=== PATIENT | male | born 1960 | race American Indian/Alaskan Native ===

== ENCOUNTER 2016-09-23 19:30 | Emergency (ER) | payer SELFPAY ==
[2016-09-23] MEDS ORDERED: LASIX PO ONE (20:21)
[2016-09-23] MEDS ORDERED: MORPHINE IM ONE (20:47)
[2016-09-23] MEDS ORDERED: ZOFRAN ODT PO ONE (20:47)
--- NOTE | 2016-09-23 21:05 | Emergency Department Report ---
HPI - General Chief Complaint: Extremity Injury, Lower Time Seen by Provider: 09/23/16 20:13 - HPI HPI: The patient is a 55 yo male with a history of chronic bilateral lower leg pain and swelling, presents for recurrence of his pain. The patient states that one week ago he expressed recurrence of bilateral lower leg swelling, and constant pain since, 02/10 in severity, pressure-like and tight in quality, exacerbated with weight bearing and ambulation. The patient denies new trauma to the lower extremities, fever, chills, night sweats, shortness of breath, chest pain, color change in the legs or feet, paresthesias, or motor deficit. ED Past Medical Hx - Past Medical History Previous Medical History?: Yes Hx Hypertension: Yes Hx CVA: No Hx Heart Attack/AMI: No Hx Congestive Heart Failure: No Hx Diabetes: No Hx Deep Vein Thrombosis: No Hx GERD: No Hx Liver Disease: No Hx Renal Disease: No Hx of Cancer: No Hx Sickle Cell Disease: No Hx Arthritis: No Hx Headaches / Migraines: No Hx Seizures: No Hx Kidney Stones: No Hx Psychiatric Treatment: No Hx Asthma: No Hx COPD: No Hx Tuberculosis: No Hx Dementia: No Hx HIV: No Additional medical history: gout - Surgical History Past Surgical History?: Yes Hx Coronary Stent: No Hx Open Heart Surgery: No Hx Pacemaker: No Hx Internal Defibrillator: No Hx Cholecystectomy: No Hx Appendectomy: No Hx Breast Surgery: No Additional Surgical History: sinuses, rotator cuff, right knee, right foot three times. - Social History Smoking Status: Never Smoker Substance Use Type: None - Medications Home Medications: Home Medications Medication Instructions Recorded Confirmed Last Taken Type HYDROcodone/APAP 7.5-325 [[place] 1 each PO Q8HR PRN #10 tablet 09/23/16 Unknown Rx 7.5-325 mg TAB] Prednisone [predniSONE 10 mg 10 mg PO .TAPER #1 tab.ds.pk 09/23/16 Unknown Rx (6-Day Pack, 21 Tabs)] ED Review of Systems ROS: Stated complaint: LEG PAIN Other details as noted in HPI Constitutional: denies: fever ENT: denies: throat or neck pain Respiratory: denies: cough, shortness of breath Cardiovascular: denies: chest pain Endocrine: denies unexplained weight loss or gain Gastrointestinal: denies: abdominal pain, nausea Genitourinary: denies: dysuria Musculoskeletal: reports leg pain and leg swelling Skin: denies: rash Neurological: denies: headache Hematological/Lymphatic: denies: easy bleeding or easy bruising Psych: denies sadness or hopelessness Physical Exam - Physical Exam Vital Signs: Vital Signs 09/23/16 19:58 Temperature 99.8 F H Pulse Rate 98 H Respiratory 18 Rate Blood Pressure 135/92 Blood Pressure 145/92 [Right] O2 Sat by Pulse 98 Oximetry Physical Exam: General: well-nourished, well-developed, no acute distress Head: Normocephalic, atraumatic Eyes: normal sclera ENT: Mucous membranes are pink and moist Neck: trachea midline, neck supple, No neck stiffness, no cervical adenopathy Respiratory: Breath sounds equal bilaterally, no wheezing, rales, or rhonchi Cardio: S1 and S2 present, no murmurs, rubs, gallops, capillary refill is brisk Abdomen: Normoactive bowel sounds, soft abdomen, no rigidity, no guarding or rebound tenderness Musc: 1+ pitting edema and tenderness to palpation of bilateral lower extremities present, no calf muscle pain with compression, no ecchymosis, erythema, or petechia, leg compartments are soft and pliable, no pain with passive extension or flexion, no sign of compartment syndrome, no knee or ankle redness, warmth, swelling or crepitus Skin: No rash Neuro: no facial drooping, normal speech Psych: Normal affect ED Course Vital Signs 09/23/16 19:58 Temperature 99.8 F H Pulse Rate 98 H Respiratory 18 Rate Blood Pressure 135/92 Blood Pressure 145/92 [Right] O2 Sat by Pulse 98 Oximetry ED Medical Decision Making - Lab Data Result diagrams: 09/23/16 21:01 09/23/16 21:01 - Medical Decision Making The patient was seen and examined by myself. The patient is placed on a inside sales consultant and continuous pulse ox. On initial evaluation, the patient was found to be in no distress. Evaluation orders were placed. The patient is given a tablet of Lasix for his leg swelling and morphine for his pain. Lab results are not concerning including normal BNP. The patient was reevaluated and reported that their symptoms were improved. The patient is stable for discharge with outpatient follow-up. The patient is given follow-up and return instructions. The patient is discharged in stable condition. Critical care attestation.: If time is entered above; I have spent that time in minutes in the direct care of this critically ill patient, excluding procedure time. ED Disposition Clinical Impression: Leg pain, bilateral, Localized swelling of lower extremity Disposition: DISCHARGED TO HOME OR SELFCARE Is pt being admited?: No Does the pt Need Aspirin: No Condition: Stable Instructions: Leg Edema (ED), Musculoskeletal Pain (ED), Arthralgia (ED) Prescriptions: HYDROcodone/APAP 7.5-325 [[place] 7.5-325 mg TAB] 1 each PO Q8HR PRN #10 tablet PRN Reason: Pain Prednisone [predniSONE 10 mg (6-Day Pack, 21 Tabs)] 10 mg PO .TAPER #1 tab.ds.pk Referrals: PRIMARY CARE, [Primary Care Provider] - 3-5 Days Time of Disposition: 20:48
[2016-09-23 21:12] LABS: Basophils % (Auto) 0.6 % (0.0-1.8); Eosinophils % (Auto) 0.9 % (0.0-4.3); Hematocrit 36.1 % (35.5-45.6); Hemoglobin 11.7 gm/dl (11.8-15.2); Mean Corpuscular HGB Conc 32 % (32-34); Mean Corpuscular Hemoglobin 28 pg (28-32); Mean Corpuscular Volume 88 fl (84-94); Platelet Count 337 K/mm3 (140-440); Red Blood Count 4.12 M/mm3 (3.65-5.03); Red Cell Distribution Width 16.1 % (13.2-15.2); White Blood Count 11.2 K/mm3 (4.5-11.0)
[2016-09-23 21:40] LABS: Anion Gap 24 mmol/L; Blood Urea Nitrogen 9 mg/dL (9-20); Calcium 9.7 mg/dL (8.4-10.2); Carbon Dioxide 23 mmol/L (22-30); Chloride 98.5 mmol/L (98-107); Glucose 103 mg/dL (75-100); Potassium 4.3 mmol/L (3.6-5.0); Sodium 141 mmol/L (137-145)
[2016-09-23 22:10] VITALS: BP 140/86
== END 2016-09-23 22:02 | disposition home or self-care (01) ==
LOC: ED 19:30
DX: M79.89 Other specified soft tissue disorders (principal); M79.604 Pain in right leg; M79.605 Pain in left leg; I10 Essential (primary) hypertension; M10.9 Gout, unspecified
CPT/HCPCS: 36415; 80048; 83880; 84550; 85025; 96372; 99284; J2270; Q0162